=== PATIENT | male | born 1995 | race Caucasian/White ===

== ENCOUNTER 2017-02-14 10:11 | Emergency (ER) | payer SELFPAY ==
--- NOTE | ~2017-02-14 | ER ---
PATIENT'S NAME: SINDHU [facility]ILL [facility] AGE: 21 Y [address] ROOM: [place] [id number] LOCATION: [facility] ADMIT DATE: 02/14/2017 ER/Outpatient Report DISCHARGE DATE: 02/14/2017 FAMILY PHYSICIAN: PHYSICIAN, NO ATTENDING PHYSICIAN: Reyna Skinner Time of Patient Arrival: 10:11. Time of Patient Evaluation: 12:20. CHIEF COMPLAINT: Left leg pain. HISTORY OF PRESENT ILLNESS: This is a 21-year-old male who presents to the ER who states that he is having some left upper posterior thigh and lower buttock pain. The patient states he tripped while carrying a dresser across the floor and states he fell backwards with the dresser falling mostly onto his anterior portion of his body. He states that he has continued to have some posterior left hip pain after this injury that occurred last night at midnight. The patient denies any other injury at this time. Denies any neck or back pain. ALLERGIES: NO KNOWN ALLERGIES. MEDICATIONS: None. PAST MEDICAL HISTORY: Negative. PAST SURGERIES: None. SOCIAL HISTORY: Smokes 1 pack a day for the last two years. He has a history of smoking marijuana. Drinks alcohol occasionally. REVIEW OF SYSTEMS: A 10-point review of system was completed, was negative with the exception of those discussed in the HPI. PHYSICAL EXAMINATION: VITAL SIGNS: Weight 66 kg taken, blood pressure is 132/64, pulse 94, respirations 18, temperature 98.3 degrees tympanically, saturations 98% on PATIENT'S NAME: SINDHU [facility] AGE: 21 Y [address] ROOM: [place] [id number] LOCATION: [facility] ADMIT DATE: 02/14/2017 ER/Outpatient Report DISCHARGE DATE: 02/14/2017 FAMILY PHYSICIAN: PHYSICIAN, NO ATTENDING PHYSICIAN: Reyna Skinner room air. [place] Coma Score is 15. GENERAL: Alert, calm, well-developed male, in no acute distress. HEENT. Head: Normocephalic. Eyes: Pupils are equal and reactive to light. Does display moist mucous membranes. LUNGS: Clear to auscultation bilaterally. No wheeze or crackles. Normal respiratory effort. HEART: Regular rate and rhythm. No lifts, thrills, or murmurs. ABDOMEN: Soft. It is nontender. He has good bowel sounds throughout. No masses were palpated. MUSCULOSKELETAL: He does have some tenderness over the posterior aspect of his left hip and lateral thigh. There is no ecchymosis. No erythema noted. DIAGNOSTIC STUDIES: Labs are done. X-rays of the left hip and pelvis were done and were unremarkable. IMPRESSION: Left hip contusion from ground level fall. ASSESSMENT AND PLAN: We did give the patient 2 [place] here in the emergency room for his pain. He needs to ice the area, take Tylenol and ibuprofen as needed for pain. The patient states he is needing work note for today as well. So, I did provide that as well. The patient should follow up with his primary care physician if he is not improving. He understands and agrees with care. KATI MONROE PA-C FOR MD SOFIE MODI/gurjit /[id number] d: t: 02/19/17 1334, OUTPATIENT REPORT
== END 2017-02-14 11:48 | disposition disaster alternative care site (69) ==
LOC: GMED 10:11
DX: S70.02XA Contusion of left hip, initial encounter (principal); W01.0XXA Fall on same level from slipping, tripping and stumbling without subsequent striking against object, initial encounter